=== PATIENT | female | born 1990 | race African-American/Black ===

== ENCOUNTER 2025-04-07 18:51 | Emergency (ER) | payer OTHER, MEDICAID ==
[~2025-04-07] VITALS: Ht 167.6 cm; Wt 86.0 kg
[2025-04-07 19:46] LABS: Urine Protein, UAD Negative (Negative)
--- NOTE | 2025-04-07 19:51 | ED.PDOC ---
History of Present Illness HPI Comments 34 y/o obese F presents with c/c of nonradiating, RLQ and epigastric abdominal pain x4 days. Patient endorses on progressively worsening pain following initial, unprovoked and atraumatic onset. Notable recent history of taking pills (2x Methotrexate) 5x weeks ago for an elective of her 11th ([id number]). Patient also comments on not having her expected menstrual cycle, yet, since taking pills. Denies any nausea, vomiting, fever, chills, or further acute symptoms. Chief Complaint: Abdominal Pain Time Seen by MD: 19:20 Reviewed Notes: Nurses Notes, Starting Gate Driver Notes Allergies: Coded Allergies: NO KNOWN ALLERGIES (Unverified , 04/07/25) Information Source: Patient Mode of Arrival: Ambulatory Severity: Moderate Timing: Days Duration: Since onset Prehospital treatment: None Past Medical History PAST MEDICAL HISTORY: Denies Surgical History: Denies all surgeries GUNITE MIXER History: No Pertinent GUNITE MIXER History 11 Para 10 AB 2 Social History Smoker: Non-Smoker Alcohol: Denies ETOH Use Drugs: Denies Drug Use Lives In: Home All Other Systems: Reviewed and Negative (Comprehensive systems review obtained and negative except for what is stated in the HPI.) Physical Exam General Appearance: No Apparent Distress, Obese HEENT: Normal ENT Inspection, Pharynx Normal, TMs Normal Neck: Full Range of Motion, Non-Tender, Normal, Normal Inspection Respiratory: Chest Non-Tender, Lungs Clear, No Accessory Muscle Use, No Respiratory Distress, Normal Breath Sounds Cardiovascular: No Edema, No JVD, No Murmur, No Gallop, Normal Peripheral Pulses, Regular Rate/Rhythm Breast Exam: Deferred Gastrointestinal: No Organomegaly, Non Tender, No Pulsatile Mass, Normal Bowel Sounds, Soft Genitalia: Deferred Pelvic: Deferred Rectal: Deferred Extremities: No calf tenderness, Normal capillary refill, Normal inspection, Normal range of motion, Non-tender, No pedal edema Musculoskeletal : Apperance: Normal Neurologic: Alert, 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 Was a procedure done?: No Differential Dx Considerations may include: gastritis, gastroenteritis, GERD, PUD, cholelithiasis, appendicitis, di verticulitis, amenorrhea, UTI, ovarian cysts, ovarian torsion, among others X-Ray, Labs, Meds, VS Vital Signs Date Time Temp Pulse Resp B/P (MAP) Pulse Ox O2 Delivery O2 Flow Rate FiO2 04/07/25 20:37 98.8 84 18 137/71 (93) 97 98.8 04/07/25 18:53 92 18 102/75 96 Lab Test 04/07/25 20:05 04/07/25 19:36 Range/Units White Blood Count 5.4 4.4-10.8 10^3/uL Red Blood Count 4.40 4.0-5.20 10^6/uL Hemoglobin 13.3 12.2-16.2 g/dL Hematocrit 40.0 36.0-46.0 % Mean Corpuscular Volume 90.9 80.0-100.0 fL Mean Corpuscular Hemoglobin 30.3 28.0-32.0 pg Mean Corpuscular Hemoglobin Concent 33.3 32.0-36.0 g/dL Red Cell Distribution Width 14.5 H 11.8-14.3 % Platelet Count 237 140-450 10^3/uL Mean Platelet Volume 7.7 6.9-10.8 fL Neutrophils (%) (Auto) 73.9 37.0-80.0 % Lymphocytes (%) (Auto) 16.9 10.0-50.0 % Monocytes (%) (Auto) 8.3 0.0-12.0 % Eosinophils (%) (Auto) 0.7 0.0-7.0 % Basophils (%) (Auto) 0.2 0.0-2.0 % Neutrophils # (Auto) 4.0 1.6-8.6 10 ^3/uL Lymphocytes # (Auto) 0.9 0.4-5.4 10 ^3/uL Monocytes # (Auto) 0.4 0-1.3 10 ^3/uL Eosinophils # (Auto) 0 0-0.8 10 ^3/uL Basophils # (Auto) 0 0-0.2 10 ^3/uL Nucleated Red Blood Cells 0.0 % Sodium Level 140 136-145 mmol/L Potassium Level 3.6 3.5-5.1 mmol/L Chloride Level 106 98-107 mmol/L Carbon Dioxide Level 26 20-31 mmol/L Anion Gap 8 5-15 Blood Urea Nitrogen 9 9-23 mg/dL Creatinine 0.90 0.550-1.02 mg/dL Glomerular Filtration Rate Calc 86 >90 mL/min BUN/Creatinine Ratio 10.0 10.0-20.0 Serum Glucose 91 74-106 mg/dL Calcium Level 8.8 8.7-10.4 mg/dL Beta HCG, Quantitative 0.4 L 1.5-4.2 mIU/mL Urine Color Light-yellow Yellow Urine Clarity Clear Clear Urine pH 6.5 5.0-9.0 Urine Specific [place] 1.016 1.001-1.035 Urine Protein Negative Negative Urine Ketones Negative Negative Urine Blood Negative Negative /uL Urine Nitrite Negative Negative Urine Bilirubin Negative Negative Urine Urobilinogen 2 H Negative mg/dL Urine Leukocyte Esterase Negative Negative /uL Urine RBC 1 0 - 4 /hpf Urine Microscopic WBC 1 0-5 /HPF Urine Squamous Epithelial Cells Few <5 /hpf Urine Bacteria None seen None Seen /hpf Urine Mucus Few None Seen Urine Glucose Normal Normal mg/dL Current Medications Medications (Trade) Dose Ordered Sig/[place] Route Start Time Stop Time Status Last Admin Acetaminophen/ Hydrocodone Bitart ([place] 5/325MG Tab) 1 tab ONCE ONCE PO 04/07/25 19:30 04/07/25 19:31 DC 04/07/25 20:45 Time of 1ST Reevaluation: 20:20 Reevaluation 1ST: Unchanged Time of 2ND Reevaluation: 23:04 Reevaluation 2ND: eloped Patient Education/Counseling: Diagnosis, Treatment, Need For Follow Up Family Education/Counseling: No Family Present Comments Patient reportedly had a medical done five weeks ago. Denies having any vaginal bleeding since the procedure with continued low abdominal pain. Her HCG is completely negative and pelvic ultrasound shows no retained products of conception or any abnormalities. Her labs are completely unremarkable. Her KUB does show constipation. On my reassessment patient had eloped SEPSIS Sepsis Screen Date sepsis recognized/suspect: Apr 07, 2025 Time Sepsis recognized/suspect: 1856 Recent Procedure: No On Antibiotic Therapy: No Respiratory Rate >20: No Heart Rate >90: No Temp<36 C (96.8 F) or >38.3 C: No SBP <90 or MAP <65 mmHG: No New Acute Mental Status Change: No Is the patient on CPAP, BIPAP,: No Physician Orders Kub Abdomen Single View (04/07/25 21:11) Pelvic (04/07/25 21:11) Vital Signs Date Time Temp Pulse Resp B/P (MAP) Pulse Ox O2 Delivery O2 Flow Rate FiO2 04/07/25 20:37 98.8 84 18 137/71 (93) 97 98.8 04/07/25 18:53 92 18 102/75 96 Laboratory Tests Test 04/07/25 20:05 White Blood Count 5.4 10^3/uL (4.4-10.8) Medications Medications Dose Ordered Sig/[place] Route Start Time Stop Time Status Last Admin Dose Admin Acetaminophen/ Hydrocodone Bitart 1 tab ONCE ONCE PO 04/07/25 19:30 04/07/25 19:31 DC 04/07/25 20:45 Departure 1 Departure Time of Disposition: 23:05 Impression: Primary Impression: Constipation Additional Impression: Abdominal pain Disposition: 07 LEFT AWOL/ELOPED Condition: Other (Unknown) Discharged With: Self Critical Care Note Critical Care Time?: No Stability Stability form required: No Heart Score Heart Score: Heart Score Response (Comments) Value History N/A 0 EKG N/A 0 Age N/A 0 Risk Factors N/A 0 Troponin N/A 0 Total 0 I personally scribed for LD BELTRAN MD ([email or web address]) on 04/07/25 at 19:51. Electronically submitted by Stephen Miller ([email or web address]). LD BELTRAN MD Apr 07, 2025 19:51
[2025-04-07 20:16] LABS: Hematocrit 40.0 % (36.0-46.0); Hemoglobin 13.3 g/dL (12.2-16.2); Mean Corpuscular Hemoglobin 30.3 pg (28.0-32.0); Mean Corpuscular Volume 90.9 fL (80.0-100.0); Nucleated Red Blood Cells % 0.0 %
[2025-04-07 20:25] LABS: Chloride 106 mmol/L (98-107); Potassium 3.6 mmol/L (3.5-5.1); Sodium 140 mmol/L (136-145)
[2025-04-07 20:26] LABS: Anion Gap 8 (5-15); Calcium 8.8 mg/dL (8.7-10.4); Carbon Dioxide 26 mmol/L (20-31)
[2025-04-07 20:31] LABS: Glucose 91 mg/dL (74-106)
[2025-04-07 20:37] VITALS: BP 137/71; PULSE 84; RESP 18; TEMP 98.8; O2SAT 97
[2025-04-07 20:45] LABS: BUN/Creatinine Ratio 10.0 (10.0-20.0); Blood Urea Nitrogen 9 mg/dL (9-23)
[2025-04-07] MEDS: HYDROcodone-ACET 5/325MG TAB PO ONE (20:45)
--- NOTE | 2025-04-07 22:17 | DVH ---
Date: 04/07/2025 09:49 PM Examination: XY KUB ABDOMEN SINGLE VIEW History: constipation COMPARISON: None TECHNIQUE: Frontal views of the abdomen was obtained. FINDINGS: Bowel gas pattern is unremarkable. The lung bases are unremarkable. No acute osseous abnormality identified. Moderate volume of stool throughout the proximal and mid colon IMPRESSION: Moderate volume of stool throughout the proximal and mid colon.
--- NOTE | 2025-04-07 22:56 | DVH ---
INDICATION: post medical , pain, rpoc TECHNIQUE: Multiple real-time grayscale transabdominal sonographic images along with color and duplex Doppler of the uterus and ovaries were obtained. COMPARISON: None FINDINGS: The uterus measures 9.5 x 5.4 x 6.2 cm. The endometrial stripe measures 0.9 cm. Right ovary measures 3.8 x 2.6 x 3.2 cm with normal Doppler color flow Left ovary measures 2.8 x 2.1 x 2.5 cm with normal Doppler color flow IMPRESSION: No vascularized retained products of conception or other significant abnormality.
[2025-04-08] MEDS ORDERED: POLY335015 PO (00:44)
== END 2025-04-08 00:45 | disposition home or self-care (01) ==
LOC: ER 18:51
DX: K59.00 Constipation, unspecified (principal); R10.13 Epigastric pain; E66.9 Obesity, unspecified; Z68.30 Body mass index [BMI] 30.0-30.9, adult
CPT/HCPCS: 36415; 74018; 76856; 80048; 81001; 84702; 85025